=== PATIENT | female | born 1965 | race African-American/Black ===

== ENCOUNTER 2017-08-05 15:45 | Emergency (ER) | payer SELFPAY ==
[2017-08-05 16:00] VITALS: BP 159/96
[2017-08-05 17:09] LABS: Hematocrit 36 % (35-47); Hemoglobin 11.1 g/dl (12.0-16.0); Mean Corpuscular HGB Conc 31 g/dl (31-36); Mean Corpuscular Hemoglobin 21 pg (27-31); Mean Corpuscular Volume 68 fL (80-97); Mean Platelet Volume 8 um3 (7.4-10.4); Red Blood Count 5.22 10^6/ul (4.0-5.4); Red Cell Distribution Width 15 % (10.5-15); White Blood Count 7.2 10^3/ul (3.5-10.8)
[2017-08-05 17:10] LABS: Albumin 4.2 g/dL (3.2-5.2); BUN/Creatinine Ratio 16.7 (8-20); Calcium 9.3 mg/dL (8.6-10.3); EGFR African American 99.7 (>60); EGFR Non-African American 77.6 (>60); Globulin 3.6 g/dL (2-4); Potassium 3.8 mmol/L (3.5-5.0); Total Bilirubin 0.3 mg/dL (0.2-1.0); Total Protein 7.8 g/dL (6.4-8.9)
[2017-08-05 17:20] LABS: Add Diff/Slide Review? Morphology Added; Comments Flag Yes
[2017-08-05] MEDS ORDERED: Ondansetron INJ* 2 MG/ML VIAL IV ONE (17:38)
[2017-08-05] MEDS ORDERED: Iohexol 300* (CONTRAST) 10 ML SDV IV ONE (17:38)
[2017-08-05] MEDS ORDERED: Acetaminophen TAB* 325 MG PO ONE (17:45)
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
[2017-08-05 18:13] LABS: Add Path Review? YES; Microcytosis 2+
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
--- NOTE | 2017-08-05 18:22 | RAD ---
INDICATION: Bilateral knee pain COMPARISON: None TECHNIQUE: Standing weightbearing AP, lateral, tunnel, and sunrise views of each knee were obtained. FINDINGS: There is no acute bony change. There is moderate to advanced lateral osteoarthritis involving all 3 joint space compartments bilaterally. There is mild tibial spine and condylar spurring of each knee with moderate left-sided medial joint space narrowing and mild medial joint space narrowing on the right. There is advanced patellofemoral osteoarthritis. There are no joint effusions. IMPRESSION: MODERATE TO ADVANCED BILATERAL KNEE OSTEOARTHRITIS
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
== END 2017-08-05 18:54 | disposition home or self-care (01) ==
LOC: ED 15:45
DX: M25.562 Pain in left knee (principal); M25.561 Pain in right knee; R51 Headache; M54.2 Cervicalgia; V43.52XA Car driver injured in collision with other type car in traffic accident, initial encounter; Y92.9 Unspecified place or not applicable; Z85.038 Personal history of other malignant neoplasm of large intestine; M17.0 Bilateral primary osteoarthritis of knee; M50.322 Other cervical disc degeneration at C5-C6 level
CPT/HCPCS: 36415; 70450; 71260; 72125; 80053; 85025; 85060; 96374; 96375; 99282; A9270-GY; J2405; Q9967